=== PATIENT | male | born 1955 ===

== ENCOUNTER 2016-11-24 08:50 | Day surgery (SDC) | payer OTHER ==
[2016-11-24] MEDS ORDERED: Lactated Ringer's 500 ML IV ONE (09:47)
[2016-11-24] MEDS ORDERED: Midazolam 2 MG/2 ML VIAL ONE (12:16)
[2016-11-24] MEDS ORDERED: Propofol 10 mg/ml Inj (20 ML) ONE (12:17)
[2016-11-24 13:13] VITALS: O2SAT 100
[2016-11-24 13:23] VITALS: BP 122/72; PULSE 79; RESP 16; TEMP 97
== END 2016-11-24 13:52 | disposition home or self-care (01) ==
LOC: H.ENDO 08:50
PROVIDERS: ATTEND Internal Medicine Gastroenterology
DX: Z12.11 Encounter for screening for malignant neoplasm of colon (principal); E78.5 Hyperlipidemia, unspecified; I10 Essential (primary) hypertension; N40.0 Benign prostatic hyperplasia without lower urinary tract symptoms; G47.33 Obstructive sleep apnea (adult) (pediatric); K57.30 Diverticulosis of large intestine without perforation or abscess without bleeding; K64.1 Second degree hemorrhoids; D12.7 Benign neoplasm of rectosigmoid junction

== ENCOUNTER 2017-02-15 06:33 | Day surgery (SDC) | payer SELFPAY ==
[2017-02-15] MEDS ORDERED: Propofol 10 mg/ml Inj (20 ML) ONE (07:07)
[2017-02-15] MEDS ORDERED: ePHEDrine 50 mg/ml Inj ONE (07:07)
[2017-02-15] MEDS ORDERED: Succinylcholine 200 mg/10 ml Inj IV ONE (07:07)
[2017-02-15] MEDS ORDERED: Phenylephrine 10 mg/ml Inj ONE (07:07)
[2017-02-15] MEDS ORDERED: Sevoflurane - Inhalation Anesthetic Liq (250 ml) ONE (07:18)
[2017-02-15 07:33] VITALS: BMI 32.8
[2017-02-15 08:15] VITALS: RESP 18
[2017-02-15] MEDS ORDERED: Midazolam 2 MG/2 ML VIAL ONE ×3 (08:36→11:05)
[2017-02-15] MEDS ORDERED: cefTRIAXone (Rocephin) 1 gm Inj ONE (09:10)
[2017-02-15] MEDS ORDERED: Lactated Ringer's 1,000 ML IV ONE (10:53)
[2017-02-15] MEDS ORDERED: Ketamine 50 mg/ml Inj (10 ml) ONE (11:06)
[2017-02-15 13:05] VITALS: O2SAT 97
[2017-02-15 14:11] VITALS: BP 140/94; PULSE 70; TEMP 97.6
--- NOTE | 2017-02-23 10:02 | VASCULAR ---
PROCEDURE: Prostate biopsy performed under ultrasound guidance HISTORY: COMPARISON: None TECHNIQUE: Standard protocol for this study/examination. FINDINGS: Ultrasound guided prostate biopsy performed. IMPRESSION: As above
== END 2017-02-15 14:25 | disposition home or self-care (01) ==
LOC: H.ENDO 06:33
PROVIDERS: ATTEND Urology
DX: R97.20 Elevated prostate specific antigen [PSA] (principal); E78.5 Hyperlipidemia, unspecified; I10 Essential (primary) hypertension